=== PATIENT | male | born 1975 | race Hispanic/Latino ===

== ENCOUNTER 2018-09-23 13:31 | Inpatient (IN) | payer BC ==
[2018-09-23] MEDS ORDERED: ISOVUE-370 76%-LOCM 1 ML ONE (13:57)
[2018-09-23 14:10] LABS: #Basophils 0.1 thou/uL (0.0-0.2); #Eosinphils 0.3 thou/uL (0.0-0.7); #Lymphocytes 2.2 thou/uL (1.20-3.40); #Monocytes 0.6 thou/uL (0.11-0.59); %Basophils 1.2 % (0.0-1.0); %Eosinophils 4.8 % (0.0-10.0); %Monocytes 8.3 % (0.0-10.0); %Neutrophils 55.8 % (42.0-75.0); Mean Corpuscular HGB CONC 33.7 g/dL (32.0-36.0); Mean Corpuscular Hemoglobin 29.2 pg (27.0-31.0); Mean Corpuscular Volume 86.7 fL (78.0-98.0); Mean Platelet Volume 7.7 fL (7.4-10.4); Platelet Count 233 thou/uL (130-400); RBC Distribution Width 11.9 % (11.5-14.5); Red Blood Cell (RBC) Count 5.48 mill/uL (4.70-6.10); White Blood Cell (WBC) Count 7.2 thou/uL (4.8-10.8)
[2018-09-23 14:34] LABS: ALT (SGPT) 42 U/L (8-55); AST (SGOT) 26 U/L (5-34); Albumin 4.2 g/dL (3.5-5.0); Alkaline Phosphatase 88 U/L (40-150); Anion Gap 12 mmol/L (10-20); BUN (Urea Nitrogen) 14 mg/dL (8.9-20.6); Bilirubin, Total 0.4 mg/dL (0.2-1.2); Calc. Creatinine Clearance 0 mL/min (70-130); Calcium 8.9 mg/dL (7.8-10.44); Carbon Dioxide 25 mmol/L (22-29); Chloride 106 mmol/L (98-107); Estimated GFR-MDRD 87; Globulin 3.3 g/dL (2.4-3.5); Glucose 91 mg/dL (70-105); Lipase 29 U/L (8-78); Potassium 3.9 mmol/L (3.5-5.1); Protein, Total 7.5 g/dL (6.0-8.3); Sodium 139 mmol/L (136-145)
[2018-09-23 15:53] LABS: Bilirubin Negative (Negative); Blood, Urine Negative (Negative); Clarity Clear (Clear); Glucose, Urine (Dipstick) Normal (Negative); Leukocyte Negative Leu/uL (Negative); Nitrite Negative (Negative); Protein, Urine (Dipstick) Negative (Neg-Trace); Urobilinogen Normal mg/dL (Less than 2)
[2018-09-23] MEDS ORDERED: Acetaminophen 325 MG TAB PO PRN (18:25)
[2018-09-23 18:27] LABS: Hemoglobin 15.4 g/dL (14.0-18.0)
[2018-09-23] MEDS ORDERED: Ondansetron PF 4 MG/2 ML Vial IVP PRN (18:27)
[2018-09-23] MEDS ORDERED: Morphine 2 MG/ML SYRINGE SLOW IVP PRN (18:27)
[2018-09-23 19:23] VITALS: BMI 33.3
[2018-09-23] MEDS ORDERED: GoLYTELY 4,000 ml Bottle PO SCH (19:30)
--- NOTE | 2018-09-23 21:42 | CT ---
ABDOMEN AND PELVIC CT SCAN WITH IV CONTRAST: History: Abdominal pain, bloody diarrhea, concern for diverticulosis, rectal bleeding. FINDINGS: The lung bases show some mild thickening in the posterior left pleura. No significant acute pulmonary parenchymal disease. The visualized liver, gallbladder, pancreas, spleen, and adrenal glands are unr emarkable. No renal calculus or acute obstruction. No evidence for large or small bowel obstructio n. There are a few sigmoid colon diverticulosis changes but no evidence for acute diverticulitis. No CT evidence for acute appendicitis. No abscess, adenopathy, or abnormal fluid collection within the a bdomen or pelvis. IMPRESSION: There are few sigmoid colon diverticulosis changes without acute diverticulitis. No evidence for othe r significant acute process in the abdomen or pelvis. POS: JAMES
[2018-09-23] MEDS: Sodium Chloride 0.9% 1,000 ML IV SCH (21:56)
[2018-09-23] MEDS: Famotidine/PF 20 mg/2ml Vial SLOW IVP SCH (21:57)
[2018-09-23 22:42] LABS: Hemoglobin 16.6 g/dL (14.0-18.0)
--- NOTE | 2018-09-23 23:26 | HP ---
CHIEF COMPLAINT: Bright blood per rectum. HISTORY OF PRESENT ILLNESS: The patient is a 43-year-old Swedish-speaking male with no significant past medical history, who presents to the hospital with complaints of bright blood per rectum x3 days. The patient states that his symptoms started on Monday after he had dinner. He started having significant amount of abdominal cramping followed by dark black diarrhea, which continued the whole night. The patient denies any fevers or chills. He was nauseated, but no emesis. The patient stated then , he was feeling okay. However, Monday he started having abdominal pain and had bright blood per rectum, had about 5 episodes of that of moderate in size. He denied any dizziness, or any lightheadedness, or any chest pain, or shortness of breath. The patient stated that his symptoms continued on Monday and therefore, he came on Monday for further evaluation. The patient states that he did take ibuprofen I believe on Monday. He took about 2 pills for his abdominal pain. He took it for about 2 to 3 days, which did not relieve I believe his abdominal pain. The patient states that normally he does not take any oral medications. PAST MEDICAL HISTORY: Denies. PAST SURGICAL HISTORY: He denies. SOCIAL HISTORY: He is an occasional drinker. No smoking history. No drug use. He is a full code. REVIEW OF SYSTEMS: All negative except the ones mentioned above in the HPI. MEDICATIONS: He takes none except for the ibuprofen that he took 2 or 3 days ago. LABORATORY DATA: As of the following; WBCs of 7.2, hemoglobin of 16.0, hematocrit of 47.5, platelets of 233. Chemistry; sodium of 139, potassium of 3.9, BUN of 14, creatinine 0.95. PHYSICAL EXAMINATION: VITAL SIGNS: Are as of the following: Temperature of 97.6, 97, 141/90, 17, and 89. GENERAL: He is awake, alert, and oriented x3, does not appear in any distress. HEENT: Normocephalic, atraumatic. No lymphadenopathy noted. Pupils are equal and reactive to light. CV: S1 and S2 present. No murmurs, rubs, or gallops. LUNGS: Clear to auscultation. No rhonchi or wheezes noted. ABDOMEN: Soft. Bowel sounds are present x2. He does have pain upon palpation to his left lower quadrant area. EXTREMITIES: No pedal pulses are present. NEUROVASCULAR: No focal deficits noted. SKIN: No cuts, lesions, or bruises noted. ASSESSMENT AND PLAN: The patient is a 43-year-old male, who presents to the hospital with complaints of bright blood per rectum. 1. Bright blood per rectum. This could be possibly diverticular. I did do a rectal exam and there was no external hemorrhoids that were noted. He did have some blood in his rectal vault. I will type and screen him. Do serial H and H's. He is currently stable; however, the patient states he has had multiple bouts of bloody diarrhea, the last one in the ER, which was witnessed by the nurses. He could be hemoconcentrated. We will also consult GI and I will get a CT of abdomen and pelvis. 2. Deep venous thrombosis prophylaxis. We will put the patient on SCDs. Job ID: [id number]
[2018-09-24 03:23] LABS: Hemoglobin 15.8 g/dL (14.0-18.0)
[2018-09-24 04:45] LABS: Anion Gap 13 mmol/L (10-20); BUN (Urea Nitrogen) 12 mg/dL (8.9-20.6); Calc. Creatinine Clearance 166 mL/min (70-130); Calcium 8.6 mg/dL (7.8-10.44); Carbon Dioxide 22 mmol/L (22-29); Chloride 107 mmol/L (98-107); Estimated GFR-MDRD Greater than 90; Glucose 83 mg/dL (70-105); Potassium 4.1 mmol/L (3.5-5.1); Sodium 138 mmol/L (136-145)
--- NOTE | 2018-09-24 05:19 | CON ---
DATE OF CONSULTATION: 09/23/2018 REASON FOR CONSULTATION: Hematochezia. CONSULTING PHYSICIAN: Cinthia Dubois MD HISTORY OF PRESENT ILLNESS: The patient is a 43-year-old male with no significant past medical history, presenting with complaints of hematochezia. He states that he was in his usual state of health until approximately 4 days ago when he began having darker colored stools, but was not associated with any significant change in stool form. However, approximately 2 days prior to admission, he began having bright red blood per rectum or hematochezia characterized as bright red blood per rectum with blood present, both on the toilet paper and in the toilet. He did have some occasional bowel movements that were composed of nothing but blood. Prior to this episode, he had approximately 3-4 solid bowel movements per day with no difficulty with defecation. He did not spend any prolonged amount of time in the toilet. He also denies any history of hemorrhoids in the past. With the occurrence of this hematochezia, he does endorse dry heaves and right-sided abdominal pain/discomfort, but currently denies any nausea, fevers, chills, weight loss, dysphagia, or odynophagia. REVIEW OF SYSTEMS: A 10-category review of systems was obtained with all responses negative except for the pertinent positives as listed in HPI. PAST MEDICAL HISTORY: None. PAST SURGICAL HISTORY: None. FAMILY HISTORY: Denies any GI malignancies. SOCIAL HISTORY: Denies any tobacco or illicit drug use. Drinks approximately 1 to 2 drinks every 1 to 2 weeks. OUTPATIENT MEDICATIONS: Ibuprofen as needed. ALLERGIES: NO KNOWN DRUG ALLERGIES. PHYSICAL EXAMINATION: VITAL SIGNS: Temperature 98.1, pulse 71, blood pressure 120/74, respiratory rate 20, saturating 96% on room air. GENERAL: The patient was lying in bed, in no acute distress. Alert and oriented x4. HEENT AND NECK: Neck is supple. No scleral icterus or JVD noted. Normocephalic, atraumatic. CARDIOVASCULAR: Regular rate and rhythm with no discernible murmurs, gallops, or rubs. RESPIRATORY: Clear to auscultation bilaterally with no discernible wheezes or rales. ABDOMEN: Normoactive bowel sounds. Soft, nondistended, mild tenderness to palpation in the left lower quadrant. EXTREMITIES: No cyanosis, clubbing, or edema. LABORATORY DATA: CBC with a white blood cell count of 7.2, hemoglobin 16, hematocrit 47.5, platelets 233. Chemistry with a sodium of 139, potassium 3.9, chloride 106, CO2 of 25, BUN 14, creatinine 0.95, glucose 91. AST 26, ALT 42, alkaline phosphatase 88, total bilirubin 0.4, lipase 29. IMAGING DATA: A CT of the abdomen and pelvis was obtained on September 23, 2018, which showed some mild thickening of the posterior left pleura, but did not show any significant pulmonary parenchymal disease. There was no evidence of large or small bowel obstruction, although there was some diverticulosis noted within the sigmoid colon without any evidence of acute diverticulitis. No other abnormalities were seen. ASSESSMENT AND PLAN: The patient is a 43-year-old male with no significant past medical history, presenting with hematochezia. Hematochezia. The patient is presenting with fairly acute onset of hematochezia characterized as bright red blood per rectum that has been present for the last 2 days prior to admission. With this blood per rectum, it was blood present on the toilet paper and in the toilet with at times, grossly bloody bowel movements with no stool mixed in. However, despite having these multiple bloody bowel movements for 2 days prior to admission, he has not exhibited any significant change from normal in his H and H. He currently denies any family history of gastrointestinal malignancy, which places him at average risk for colonic malignancy. At this time, the more likely reason for his hematochezia would be hemorrhoidal in nature. However, the differential could include ulcerative colitis, Crohn disease, Dieulafoy lesion, arteriovenous malformation, diverticular bleeding (less likely given the amount of blood loss) and/or gastrointestinal neoplasm (much less likely). RECOMMENDATIONS: 1. We would continue the patient on a clear liquid diet with n.p.o. at midnight in preparation for colonoscopy. 2. We would proceed with colonoscopy tomorrow for intraluminal evaluation and possible source of bleeding. Nereyda prep tonight in anticipation for this. 3. We would continue to trend H and H, transfuse as necessary to maintain an H and H of 7/. 4. Continue to monitor clinically for signs of active GI bleeding. 5. Further recommendations to follow colonoscopy. We will continue to follow. Please call with any questions. Job ID: [id number]
[2018-09-24 05:57] LABS: #Eosinphils 0.5 thou/uL (0.0-0.7); #Lymphocytes 2.8 thou/uL (1.20-3.40); #Monocytes 0.8 thou/uL (0.11-0.59); #Neutrophils 3.7 thou/uL (1.40-6.50); %Basophils 0.6 % (0.0-1.0); %Eosinophils 5.8 % (0.0-10.0); %Lymphocytes 35.9 % (21.0-51.0); %Monocytes 9.8 % (0.0-10.0); %Neutrophils 47.9 % (42.0-75.0); Mean Corpuscular HGB CONC 33.9 g/dL (32.0-36.0); Mean Corpuscular Hemoglobin 30.2 pg (27.0-31.0); Mean Corpuscular Volume 89.2 fL (78.0-98.0); Mean Platelet Volume 8.3 fL (7.4-10.4); Platelet Count 229 thou/uL (130-400); RBC Distribution Width 12.1 % (11.5-14.5); Red Blood Cell (RBC) Count 5.23 mill/uL (4.70-6.10); White Blood Cell (WBC) Count 7.7 thou/uL (4.8-10.8)
[2018-09-24 07:45] VITALS: BP 120/61; TEMP 98.5
[2018-09-24] MEDS: Famotidine/PF 20 mg/2ml Vial SLOW IVP SCH (08:10)
[2018-09-24] MEDS: Sodium Chloride 0.9% 1,000 ML IV SCH (08:11)
[2018-09-24 09:13] LABS: Hemoglobin 15.6 g/dL (14.0-18.0)
--- NOTE | 2018-09-24 12:46 | OP ---
DATE OF PROCEDURE: 09/24/2018 PROCEDURE PERFORMED: Colonoscopy (diagnostic). INDICATION FOR PROCEDURE: Hematochezia. DESCRIPTION OF PROCEDURE: After the risks and benefits of the procedure were explained to the patient including risks of bleeding, infection, perforation, reactions to anesthesia, aspiration and/or pain, informed consent was obtained. The patient was then taken to the endoscopy suite, where deep sedation was administered via propofol and anesthesia support. Once adequate sedation was achieved, the patient was moved into the left lateral decubitus position followed by a digital rectal examination. The standard colonoscope was then introduced to the rectum and advanced to the terminal ileum without difficulty. The quality of the prep was good in both the transverse and left colon, but fair in the right colon with an increased amount of retained semi-solid/adherent stool; however, it was amenable to aggressive irrigation and suctioning and converted from a fair to good prep with the installation of a large amount of sterile water. Of the mucosa seen, normal-appearing mucosa was seen within the terminal ileum as well as at the appendiceal orifice and ileocecal valve. Normal-appearing mucosa was then seen in the cecum, ascending colon, transverse colon, descending colon, and sigmoid colons. A large patch measuring 1.5 cm in diameter of submucosal hemorrhage was seen in the rectum immediately opposite the anal orifice; however, it did not exhibit any evidence of active or recent bleeding. There was no ulceration associated with this lesion as well. However, immediately adjacent to the anal orifice, overlying small internal hemorrhoids. There were other smaller patches of submucosal erythema/hemorrhage measuring between 3 to 4 mm in size, all without evidence of active/recent bleeding. Again, small internal hemorrhoids were seen on rectal retroflexion. IMPRESSION: 1. Small internal hemorrhoids. 2. Patches of submucosal hemorrhage in the rectum consistent with solitary rectal ulcer syndrome. RECOMMENDATIONS: 1. Would continue to monitor clinically for signs of active GI bleeding. 2. Would place the patient on a higher fiber diet as part of the stool bulking technique and consider bulk laxatives like MiraLAX as an outpatient, if having difficulty defecating or having to strain to have a bowel movement. 3. If the patient does not respond to stool bulking agents or laxatives, then biofeedback could be entertained as an outpatient with surgery left as a last resort. 4. We will sign off at this time. The patient can be discharged from the GI standpoint at this time. Please call with any additional questions. Job ID: [id number]
--- NOTE | 2018-09-25 04:51 | DIS ---
DATE OF ADMISSION: 09/23/2018 DATE OF DISCHARGE: 09/24/2018 DISCHARGE DIAGNOSES: 1. Bright blood per rectum. 2. Solitary rectal ulcer syndrome. HOSPITAL COURSE: The patient is a 43-year-old male, who initially presented to the hospital with bright blood per rectum for the past few days. His H and H were trended. His H and H continued to be stable. He had no symptoms of dizziness. He underwent a CT of abdomen and pelvis and also was seen by GI. CT of abdomen and pelvis indicated some sigmoid colon diverticulosis without any active diverticulitis. No other findings were noted. He underwent a colonoscopy, which indicated small internal hemorrhoids and patch of submucosal hemorrhage in the rectum consistent with solitary rectal ulcer syndrome. GI recommended to monitor clinically for active bleeding. The patient has had a bowel movement without any issues. He has been tolerating his oral diet and also, recommended to place the patient on a high-fiber diet for stool bulking techniques and consider bulk laxatives and MiraLAX as outpatient. Okay to be discharged from GI perspective. The patient will be discharged home. He will follow up with his primary. HOME MEDICATIONS: Prescribed him MiraLAX 17 g p.o. daily. PHYSICAL EXAMINATION: VITAL SIGNS: Temperature 98.5, pulse 64, respirations 18, 94% on room air, blood pressure 120/61. GENERAL: He is awake, alert, and oriented x3. Does not appear in distress. CV: S1 and S2 present. No murmurs, rubs, or gallops. ABDOMEN: Soft and nontender. Bowel sounds are present x2. Job ID: [id number]
== END 2018-09-24 18:27 | disposition home or self-care (01) | DRG 395 ==
LOC: ERS 13:31 → T4-A 17:21
PROVIDERS: ADMIT Internal Medicine; ATTEND Internal Medicine
PROC: 0DJD8ZZ Inspection of Lower Intestinal Tract, Via Natural or Artificial Opening Endoscopic (ICD-10-PCS; principal; 2018-09-23)
DX: K62.6 Ulcer of anus and rectum (principal); K64.8 Other hemorrhoids; K57.30 Diverticulosis of large intestine without perforation or abscess without bleeding
CPT/HCPCS: 36415; 74177; 80048; 80053; 81003; 82274; 83690; 85025; 86850; 86900; 86901; 96360; 96361; S0028

== ENCOUNTER 2018-12-10 15:14 | Outpatient (CLI) | payer BC ==
--- NOTE | 2018-12-10 15:53 | RAD ---
4 views of the right knee: 12/10/2018 COMPARISON: None HISTORY: Osteoarthritis, pain FINDINGS: No knee joint effusion, fracture, or evidence of dislocation mild posterior patellar osteop hyte formation. Minimal osteophyte formation of the medial femoral condyle and medial tibial plateau. IMPRESSION: No acute findings.
--- NOTE | 2018-12-10 15:54 | RAD ---
4 views of the left knee: 12/10/2018 COMPARISON: None HISTORY: Pain FINDINGS: Minimal osteophyte formation of the medial femoral condyle. No displaced fracture or eviden ce of dislocation is seen. IMPRESSION: No acute findings.
== END 2018-12-10 15:15 | disposition home or self-care (01) ==
LOC: BICRAD 15:14
PROVIDERS: ATTEND Family Medicine
DX: M17.0 Bilateral primary osteoarthritis of knee (principal)